=== PATIENT | female | born 1955 | race Caucasian/White ===

== ENCOUNTER 2022-09-26 09:02 | Day surgery (SDC) | payer MEDICARE, MEDICAID, SELFPAY ==
[2022-09-26 09:43] VITALS: BP 133/74; PULSE 92; RESP 20; TEMP 36.5; O2SAT 98
[2022-09-26] MEDS: Tropicam./Phenyleph. (1/2.5%) 5 ML BTL OD ×3 (10:04→10:14)
--- NOTE | 2022-09-26 10:20 | ANES.PREOP_ITS ---
General Info Date of Service Date Performed: 09/26/22 Height: 5 ft 1 in Weight: 53.8 kg Body Mass Index (BMI): 22.4 Surgical Procedure: Operation Date: 09/26/22 11:25 Proposed Procedure Side Surgeon p Cataract Extraction with IOL Implant Right Stan Sanchez MD Meds Allergies and Home Medications Allergies Allergy/AdvReac Type Severity Reaction Status Date / Time Iodinated Contrast Media Allergy Intermediate Nausea Verified 09/26/22 09:51 vomiting Home Medication Medication Instructions Recorded albuterol sulfate 90 mcg/actuation 2 puff inhalation Q6H PRN 02/20/22 aerosol inhaler (Ventolin HFA) fluticasone fur. 200 mcg-umeclid 1 inh inhalation DAILY 02/20/22 62.5 mcg-vilant 25 mcg inhalat.powder (Trelegy Ellipta) levothyroxine 50 mcg tablet 50 mcg PO DAILY 02/20/22 lorazepam 1 mg tablet 1 mg PO TID PRN 02/20/22 omeprazole 20 mg capsule,delayed 20 mg PO DAILY 02/20/22 release albuterol sulfate 2.5 mg/3 mL 2.5 mg inhalation DIRECTED 09/23/22 (0.083 %) solution for nebulization diltiazem HCl 120 mg capsule,24 120 mg PO DAILY 09/23/22 hr,extended release Current Visit Medications: Current Medications Generic Name Dose Route Start Last Admin Trade Name Freq PRN Reason Stop Dose Admin Acetaminophen 1,000 mg 09/26/22 06:00 Acetaminophen 500 Mg Tab PO 10/26/22 05:59 Q4H PRN PRN Balanced Salt Solution 500 ml 09/26/22 06:00 Balanced Salt Soln.-Plus 500 Ml Bag OP 10/26/22 05:59 DIRECTED FEDE Miscellaneous Medication 0 ml 09/26/22 06:00 Prednisolone 1%, Moxifloxacin 0.5%, Nepafenac 0.1% 5ml Btl OD 10/26/22 05:59 DIRECTED FEDE Miscellaneous Medication 0 ml 09/26/22 06:00 09/26/22 10:14 Tropicam./Phenyleph. (1/2.5%) 5 Ml Btl OD 10/26/22 05:59 1 drp DIRECTED FEDE Administration Tetracaine HCl 0 ml 09/26/22 06:00 Tetracaine 0.5% 4 Ml Btl OD 10/26/22 05:59 DIRECTED [facility] Active Problems Active Problems: Problem Status Onset Code Cortical age-related cataract, right eye H25.011 Nuclear sclerotic cataract of right eye H25.11 Posterior subcapsular age-related cataract, right eye H25.041 Medical History Medical History Advanced COPD CAD (coronary artery disease) Chest wall pain Former smoker Heart burn Hx of radiation therapy Last done 08/18/22 Hypertension Hypothyroid Lung cancer Mediastinal lymphadenopathy Metastatic lung cancer (metastasis from lung to other site) to hip bone Primary malignant neoplasm of right lower lobe of lung Tachycardia Medical History Comments:: Pt. requests O2 during procedure. Surgical History Surgical History History of colonoscopy History of hysterectomy Tobacco Smoking/Tobacco Use Status: Former Tobacco Use Alcohol Alcohol Intake: never Substance Use Substance use: Never Substance use type: does not use Vital Signs and Lab Results Vital Signs Most Recent Vital Signs in EMR: Most Recent Vital Signs Temp Pulse Resp BP Pulse Ox 36.5 C 92 H 20 133/74 98 09/26/22 09:43 09/26/22 09:43 09/26/22 09:43 09/26/22 09:43 09/26/22 09:43 Lab Results Blood Type / Crossmatch: No Data to Display Complete Blood Count: No Data to Display Complete Metabolic Panel: No Data to Display Liver Function Panel: No Data to Display Coagulation Panel: No Data to Display Cardiac Panel: No Data to Display Arterial Blood Gas: No Data to Display Venous Blood Gas: No Data to Display Pancreas Panel: No Data to Display Thyroid Panel: No Data to Display Infectious Disease: No Data to Display Blood Cultures: No Data to Display Toxicology Panel: No Data to Display Anesthesia Assessment and Plan Anesthesia History Personal History: No History of Anesthesia Complications Family History: No Family History of Anesthesia Complications Exercise Tolerance Exercise Tolerance: Metabolic Equivalents<4 Pertinent Negatives Pertinent Negatives: No Symptoms of GERD and No Major Cardiovascular Symptoms or Complaints Cardiac & Pulmonary Exam Cardiac Exam: Normal S1/S2 Heart Sounds Pulmonary Exam: Clear Bilateral Breath Sounds (diminished) Cardiac and Pulmonary Comment:: Severe ALCAZAR, home O2 Implantable Cardiac Device Does patient have a Pacemaker or an ICD?: No Airway Exam Known Difficult Airway: No Mallampati Class: 2 Mouth Opening: Normal (> 3cm) Thyromental Distance: Greater than 3 cm Neck Range of Motion: Full ROM Neck Circumference: Normal Teeth Condition: Generalized Poor Dentition (some slightly loose per pt) ASA Classification ASA Score: ASA 4 Emergency Case?: No NPO Status NPO Status: NPO Clears >2 hours, Solids >8 hours Anesthesia Plan Resuscitation Status: Full Code Anesthesia Technique: MAC Anesthesia Airway Planned: Natural Airway Monitors Used: Standard Monitors Preoperative Comments:: MKO planned Position in OR to decrease duration of lying flat
[2022-09-26 10:23] VITALS: BMI 22.4
[2022-09-26] MEDS: Tetracaine 0.5% 4 ML BTL OD (11:25)
[2022-09-26] MEDS: Povidone-Iodine Ophth 30 ML BTL ×2 (11:25→11:40)
[2022-09-26] MEDS: Lidocaine 1% Pres-Free 5 ML VIAL (11:26)
[2022-09-26] MEDS: Balanced Salt Soln.-PLUS 500 ML BAG OP (11:27)
[2022-09-26] MEDS: Duovisc Viscoelastic System EACH 1 EACH (11:28)
[2022-09-26] MEDS: Phenylephrine/Lidocaine (15/10) MG/ML 1 ML VIAL (11:28)
[2022-09-26 11:45] VITALS: BP 103/69; PULSE 102; RESP 20; TEMP 36.5; O2SAT 97
--- NOTE | 2022-09-26 11:46 | W.PM.DSUDISC ---
Date of service: 09/26/22 Time of Service: 11:46 Discharge Plan Disposition Patient Disposition: Home Discharge Details Attending Provider: Stan Sanchez Primary Care Provider: Morteza Rutherford Home Meds and New Rx's Prescriptions: No Action albuterol sulfate 2.5 mg /3 mL (0.083 %) Solution For Nebulization 2.5 mg inhalation DIRECTED diltiazem HCl 120 mg Capsule,Extended Release 24 Hr 120 mg PO DAILY levothyroxine 50 mcg Tablet 50 mcg PO DAILY omeprazole 20 mg Capsule,Delayed Release(Dr/Ec) 20 mg PO DAILY lorazepam 1 mg Tablet 1 mg PO TID PRN albuterol sulfate [Ventolin HFA] 90 mcg/actuation Hfa Aerosol Inhaler 2 puff INHALATION Q6H PRN Trelegy Ellipta 200-62.5-25 mcg Blister With Device 1 inh INHALATION DAILY Discharge Instructions Stand Alone Forms: Post-op Topical Cataract, Carroll Pacheco (DSU) Discharge Orders Discharge Orders: Discharge Order (Routine); Ordered 09/26/22 Ordered By: Stan Sanchez Discharge Data Discharge Date/Time-TO BE ENTERED AT DEPARTURE: 09/26/22 12:15 DS: Diagnosis Discharge Diagnosis (1) Cortical age-related cataract, right eye: Status: Resolved (2) Nuclear sclerotic cataract of right eye: Status: Resolved (3) Posterior subcapsular age-related cataract, right eye: Status: Resolved
--- NOTE | 2022-09-26 11:47 | W.PM.OP ---
Date of service: 09/26/22 Time of Service: 11:47 Operative Note Operative Note DATE OF PROCEDURE: 10/01/20 PRE-OP DIAGNOSIS: Nuclear/cortical/posterior subcapsular cataract, right eye POST-OP DIAGNOSIS: same PROCEDURE: Cataract extraction using phacoemulsification with intraocular lens implant, right eye SURGEON: Stan Sanchez ANESTHESIA TYPE: Local By Surgeon and MAC Refer to Anesthesia Record ESTIMATED BLOOD LOSS: 0 PATHOLOGY: none sent COMPLICATIONS: None Patient was transported to: same day Patient's condition: stable Implants: Tyson & Tyson Tecnis Eyhance [id number] Indications: Progressive visual loss due to cataract, right eye Procedure Description: CATARACT SURGERY OPERATIVE REPORT PREOPERATIVE DIAGNOSIS: 1. Nuclear/cortical/posterior subcapsular cataract, right eye POSTOPERATIVE DIAGNOSIS: Same OPERATION: 1. Cataract extraction using phacoemulsification with posterior chamber intraocular lens implant, right eye. IOL: IOL Seamless Tube Roller/Model: Tyson & Tyson Tecnis Eyhance [id number] IOL Power: + 13.5 diopters IOL Serial Number: [id number] Optic Diameter: 6.0mm Haptic/Overall Diameter: 13.0mm PHACO INFO: Teofilo Curried Away Cateringurion Vision System with OZil and Active Fluidics Cumulative Dispersed Energy (CDE): 14.87 seconds SURGEON: Stan aSnchez MD, KWAN ANESTHESIA: Monitored Anesthesia Care (MAC), with local sub-tenon's anesthetic infiltration COMPLICATIONS: None SPECIMENS: None INDICATIONS FOR PROCEDURE: The patient is a 66-year-old lady with history of diminished visual acuity in her right eye secondary to the development of nuclear/cortical/posterior subcapsular cataract. She is significantly symptomatic that she desires cataract surgery and attempt to improve and maximize her vision. The option of cataract surgery was offered to the patient and she wished to proceed. PROCEDURE: The correct surgical eye was identified and marked as the right eye and the pupil was dilated in the preoperative area using mydriatics and cycloplegics. The dilated pupil size was 6.0 mm. Oral sedation was administered in the form of an Imprimis MKO Melt (midazolam 3mg/ketamine 25mg/ondansetron 2mg). The patient was brought to the operating room where cardiopulmonary monitoring was instituted and surgical time-out was performed, confirming the correct operative eye and IOL power. Topical anesthesia was administered and ophthalmic povidone-iodine 5% was instilled into the conjunctival fornices. The jose-ocular area was prepped with Betadine 10% solution and draped in the usual sterile fashion for intraocular surgery, including an aperture drape. A Tegaderm transparent film dressing was cut in half and used to cover the lashes and lid margins. Care was taken to sequester the lashes and lid margins under the Tegaderm dressing. A lid speculum was placed between the lids of the operative eye and the Teofilo LuxOR Revalia operating microscope was maneuvered into position. Maria Eugenia scissors were then used to make a conjunctival buttonhole approximately 6mm posterior to the limbus in the inferonasal quadrant. Blunt dissection was carried out to expose bare sclera, and a blunt-tipped sub-tenon?s anesthesia cannula was introduced and passed posteriorly along the globe where non-preserved plain lidocaine was injected into posterior sub-Tenon?s space. A sideport knife was used to make a paracentesis port. Intraocular phenylephrine/lidocaine was injected into the anterior chamber. The anterior chamber was filled with viscoelastic. A keratome knife was used to construct a 2-plane clear corneal tunnel extending 2.0mm into clear cornea. A flap was raised on the anterior capsule and capsulorhexis forceps were used to complete a continuous curvilinear capsulorhexis of 5.0 mm. Balanced salt solution was then used to perform cortical cleaving hydrodissection and nuclear hydrodelineation until the lens could be freely rotated within the capsular bag. The lens nucleus was then disassembled and removed within the capsular bag and iris plane using phacoemulsification. Residual cortical material was removed using the I/A handpiece. The posterior capsule was carefully polished to remove as much residual lens epithelial cells as safely possible. The capsular bag was then inflated and the anterior chamber deepened with cohesive viscoelastic. The lens implant described above was inserted into the capsular bag using the Tyson and Bernard Simplicity pre-loaded injector. A Kuglen hook was used to dial the IOL into position. Residual viscoelastic was then removed first from posterior to the IOL, then from the anterior chamber using the I/A handpiece. The lens implant was noted to center nicely within the capsular bag. The incisions were stromally hydrated, and the anterior chamber was reformed using BSS. Then 0.5cc of moxifloxacin 1.0mg/ml were injected into the capsular bag and anterior chamber. The incisions were checked with a Weck spear and found to be secure. Several drops of ophthalmic povidone-iodine 5% were then applied to the eye followed by two drops of Imprimis combination prednisolone/moxifloxacin/nepafenac solution. The drapes were removed and a clear plastic protective eye shield was placed over the eye. The patient was then returned to Same Day Surgery in stable condition.
[2022-09-26 12:05] VITALS: BP 117/82; PULSE 91; RESP 20; TEMP 36.4; O2SAT 98
--- NOTE | 2022-09-26 12:48 | W.ANESPOSTOP ---
Postoperative Evaluation Date, Time and Location Date Performed: 09/26/22 Time Performed: 12:12 Patient Location: Day Surgery Unit Vital Signs Most Recent Imported Vital Signs: Most Recent Vital Signs Temp Pulse Resp BP Pulse Ox 36.4 C L 91 H 20 117/82 98 09/26/22 12:05 09/26/22 12:05 09/26/22 12:05 09/26/22 12:05 09/26/22 12:05 Pain Score Most Recent Pain Score: Most Recent Pain Score Pain Level 0 09/26/22 12:05 Assessment Mental Status: Awake (Alert & Oriented to Patient Baseline) Airway and Respiratory Function: Patent airway with normal (patient baseline) respiratory exam Cardiovascular Function: Hemodynamically Stable Hydration Status: Adequately Hydrated Nausea & Vomiting: No Nausea or Vomiting Pain: Pt. Denies Any Pain Peripheral Nerve Block: Patient did not receive a nerve block
== END 2022-09-26 12:15 | disposition home or self-care (01) ==
PROVIDERS: PCP Internal Medicine; Visit Provider Ophthalmology
PROC: (CPT 66984; principal; 2022-09-26 11:15)
DX: H25.011 Cortical age-related cataract, right eye (principal); H25.11 Age-related nuclear cataract, right eye; H25.041 Posterior subcapsular polar age-related cataract, right eye
CPT/HCPCS: 66984; V2632

== ENCOUNTER 2022-10-10 11:57 | Day surgery (SDC) | payer MEDICARE, MEDICAID, SELFPAY ==
[2022-10-10 12:45] VITALS: BP 123/89; PULSE 96; RESP 18; TEMP 36.3; O2SAT 91
[2022-10-10] MEDS: Tropicam./Phenyleph. (1/2.5%) 5 ML BTL OS ×3 (12:56→13:06)
--- NOTE | 2022-10-10 12:58 | W.ANESPRE ---
General Info Date of Service Date Performed: 10/10/22 Height: 5 ft 1 in Weight: 53.5 kg Body Mass Index (BMI): 22.2 Surgical Procedure: Operation Date: 10/10/22 14:25 Proposed Procedure Side Surgeon p Cataract Extraction with IOL Implant Left Stan Sanchez MD Meds Allergies and Home Medications Allergies Allergy/AdvReac Type Severity Reaction Status Date / Time Iodinated Contrast Media Allergy Intermediate Nausea Verified 10/10/22 12:40 vomiting Home Medication Medication Instructions Recorded albuterol sulfate 90 mcg/actuation 2 puff inhalation Q6H PRN 02/20/22 aerosol inhaler (Ventolin HFA) fluticasone fur. 200 mcg-umeclid 1 inh inhalation DAILY 02/20/22 62.5 mcg-vilant 25 mcg inhalat.powder (Trelegy Ellipta) levothyroxine 50 mcg tablet 50 mcg PO DAILY 02/20/22 lorazepam 1 mg tablet 1 mg PO TID PRN 02/20/22 omeprazole 20 mg capsule,delayed 20 mg PO DAILY 02/20/22 release albuterol sulfate 2.5 mg/3 mL 2.5 mg inhalation DIRECTED 09/23/22 (0.083 %) solution for nebulization diltiazem HCl 120 mg capsule,24 120 mg PO DAILY 09/23/22 hr,extended release lidocaine HCl 1 % lotion See Rx Instructions topical 09/30/22 DIRECTED pregabalin 25 mg capsule (Lyrica) 25 mg PO TID 09/30/22 tramadol 50 mg tablet 50 mg PO TID 09/30/22 triamcinolone acetonide 0.1 % 1 applic topical BID 09/30/22 topical cream Current Visit Medications: Current Medications Generic Name Dose Route Start Last Admin Trade Name Freq PRN Reason Stop Dose Admin Acetaminophen 1,000 mg 10/10/22 06:00 Acetaminophen 500 Mg Tab PO 11/09/22 05:59 Q4H PRN PRN Balanced Salt Solution 500 ml 10/10/22 06:00 Balanced Salt Soln.-Plus 500 Ml Bag OP 11/09/22 05:59 DIRECTED FEDE Miscellaneous Medication 0 ml 10/10/22 06:00 Prednisolone 1%, Moxifloxacin 0.5%, Nepafenac 0.1% 5ml Btl OS 11/09/22 05:59 DIRECTED FEDE Miscellaneous Medication 0 ml 10/10/22 06:00 10/10/22 12:56 Tropicam./Phenyleph. (1/2.5%) 5 Ml Btl OS 11/09/22 05:59 1 drp DIRECTED FEDE Administration Tetracaine HCl 0 ml 10/10/22 06:00 Tetracaine 0.5% 4 Ml Btl OS 11/09/22 05:59 DIRECTED [facility] PFSH Active Problems Active Problems: Problem Status Onset Code Nuclear sclerotic cataract of right eye H25.11 Posterior subcapsular age-related cataract, right eye H25.041 Cortical age-related cataract, right eye H25.011 Coronary arteriosclerosis in [place] artery I25.10 Nuclear age-related cataract, left eye H25.12 Cortical age-related cataract, left eye H25.012 Medical History Medical History Advanced COPD CAD (coronary artery disease) Chest wall pain Former smoker Heart burn Hx of radiation therapy Last done 08/18/22 Hypertension Hypothyroid Lung cancer Mediastinal lymphadenopathy Metastatic lung cancer (metastasis from lung to other site) to hip bone Primary malignant neoplasm of right lower lobe of lung Tachycardia Medical History Comments:: Pt. requests O2 during procedure. Surgical History Surgical History (Updated 10/10/22 @ 12:39 by Selvin Duval) History of colonoscopy History of hysterectomy Hx of appendectomy Tobacco Smoking/Tobacco Use Status: Former Tobacco Use Alcohol Alcohol Intake: never Substance Use Substance use: Never Substance use type: does not use Vital Signs and Lab Results Vital Signs Most Recent Vital Signs in EMR: Most Recent Vital Signs Temp Pulse Resp BP Pulse Ox 36.3 C L 96 H 18 123/89 91 L 10/10/22 12:45 10/10/22 12:45 10/10/22 12:45 10/10/22 12:45 10/10/22 12:45 Lab Results Blood Type / Crossmatch: No Data to Display Complete Blood Count: No Data to Display Complete Metabolic Panel: No Data to Display Liver Function Panel: No Data to Display Coagulation Panel: No Data to Display Cardiac Panel: No Data to Display Arterial Blood Gas: No Data to Display Venous Blood Gas: No Data to Display Pancreas Panel: No Data to Display Thyroid Panel: No Data to Display Infectious Disease: No Data to Display Blood Cultures: No Data to Display Toxicology Panel: No Data to Display Anesthesia Assessment and Plan Anesthesia History Personal History: No History of Anesthesia Complications Family History: Other Exercise Tolerance Exercise Tolerance: Metabolic Equivalents>4 Pertinent Negatives Pertinent Negatives: No Major Cardiovascular Symptoms or Complaints Cardiac & Pulmonary Exam Cardiac Exam: Normal S1/S2 Heart Sounds Pulmonary Exam: Clear Bilateral Breath Sounds Cardiac and Pulmonary Comment:: Diminished lungs Implantable Cardiac Device Does patient have a Pacemaker or an ICD?: No Airway Exam Known Difficult Airway: No Mallampati Class: 2 Mouth Opening: Normal (> 3cm) Thyromental Distance: Greater than 3 cm Neck Range of Motion: Full ROM Neck Circumference: Normal Teeth Condition: Generalized Poor Dentition (some slightly loose per pt) ASA Classification ASA Score: ASA 4 Emergency Case?: No NPO Status NPO Status: NPO Clears >2 hours, Solids >8 hours Anesthesia Plan Resuscitation Status: Full Code Anesthesia Technique: MAC Anesthesia Airway Planned: Natural Airway Monitors Used: Standard Monitors
[2022-10-10 13:02] VITALS: BMI 22.2
--- NOTE | 2022-10-10 13:05 | HPE_ITS ---
Assessment and Plan Assessment and plan (1) Nuclear age-related cataract, left eye: Status: Acute Assessment and plan: Assessment: Visually significant cataract of the left eye. Plan: Cataract extraction with lens implantation of the left eye (2) Cortical age-related cataract, left eye: Status: Acute Assessment and plan: Assessment: Visually significant cataract of the left eye. Plan: Cataract extraction with lens implantation of the left eye History of Present Illness History of Present Illness Chief Complaint: Progressive decreased vision, left eye Narrative: The patient is a 66-year-old lady with history of diminished visual acuity in both eyes secondary to the development of bilateral nuclear/cortical cataract. She has already undergone cataract surgery in the right eye on 09/26/2022 and is doing well postoperatively. She now presents for cataract surgery in her symptomatic left eye. She notes blurred vision at both distance and near secondary to cataracts. Is a significantly impacting her activities of daily life and she desires cataract surgery attempt to improve and maximize her vision. Review of Systems All systems reviewed & are unremarkable except as noted in HPI and below PFSH All Active Problems Coronary arteriosclerosis in [place] artery (Acute) Nuclear age-related cataract, left eye (Acute) Cortical age-related cataract, left eye (Acute) Medical History Advanced COPD CAD (coronary artery disease) Chest wall pain Former smoker Heart burn Hx of radiation therapy Last done 08/18/22 Hypertension Hypothyroid Lung cancer Mediastinal lymphadenopathy Metastatic lung cancer (metastasis from lung to other site) to hip bone Primary malignant neoplasm of right lower lobe of lung Tachycardia Surgical History History of colonoscopy History of hysterectomy Hx of appendectomy Family History Father COPD (chronic obstructive pulmonary disease) Mother Cancer Heart disease heart attack Uncle Heart disease heart attack Aunt Heart disease heart attack Social History Smoking/Tobacco Use Status: Former Tobacco Use tobacco type: cigarettes Quit Date: 03/16/13 Smoking risk assessment performed?: Yes Alcohol Intake: never Drug use: Never Substance use type: does not use Housing: apartment Do you feel safe at home: Yes Additional Social history: lives alone-pt. states her daughter will come and help her post-operatively Meds Allergies and Home Medications Allergies Allergy/AdvReac Type Severity Reaction Status Date / Time Iodinated Contrast Media Allergy Intermediate Nausea Verified 10/10/22 12:40 vomiting Home Medications Medication Instructions Recorded Confirmed Type albuterol sulfate 90 mcg/actuation 2 puff inhalation Q6H PRN 02/20/22 10/10/22 History aerosol inhaler (Ventolin HFA) fluticasone fur. 200 mcg-umeclid 1 inh inhalation DAILY 02/20/22 10/10/22 History 62.5 mcg-vilant 25 mcg inhalat.powder (Trelegy Ellipta) levothyroxine 50 mcg tablet 50 mcg PO DAILY 02/20/22 10/10/22 History lorazepam 1 mg tablet 1 mg PO TID PRN 02/20/22 10/10/22 History omeprazole 20 mg capsule,delayed 20 mg PO DAILY 02/20/22 10/10/22 History release albuterol sulfate 2.5 mg/3 mL 2.5 mg inhalation DIRECTED 09/23/22 10/08/22 History (0.083 %) solution for nebulization diltiazem HCl 120 mg capsule,24 120 mg PO DAILY 09/23/22 10/10/22 History hr,extended release lidocaine HCl 1 % lotion See Rx Instructions topical 09/30/22 10/08/22 History DIRECTED pregabalin 25 mg capsule (Lyrica) 25 mg PO TID 09/30/22 10/08/22 History tramadol 50 mg tablet 50 mg PO TID 09/30/22 10/08/22 History triamcinolone acetonide 0.1 % 1 applic topical BID 09/30/22 10/08/22 History topical cream Exam Eyes Other: Most recent ocular examination is significant for uncorrected vision of 20/20 in the right eye, corrected vision in the left eye is 20/200. Extract motility is normal. Intraocular pressures 13 OU. Slit-lamp examination is significant for pupils dilating to 5 mm OU. Well-positioned PCIOL OD with clear posterior capsule. The left eye shows moderate nuclear with mild posterior subcapsular cataract. Dilated funduscopic examination shows disc cupping of 0.35 OU with normal vessels, macula, peripheral retina and vitreous. Resp Auscultation: clear to auscultation bilaterally Cardio Rate: regular rate Rhythm: regular rhythm Results Last Vital Signs Temp 36.3 C L 10/10/22 12:45 Pulse 96 H 10/10/22 12:45 Resp 18 10/10/22 12:45 BP 123/89 10/10/22 12:45 Pulse Ox 91 L 10/10/22 12:45
[2022-10-10] MEDS: Tetracaine 0.5% 4 ML BTL OS (13:52)
[2022-10-10] MEDS: Povidone-Iodine Ophth 30 ML BTL (13:52)
[2022-10-10] MEDS: Phenylephrine/Lidocaine (15/10) MG/ML 1 ML VIAL (14:00)
[2022-10-10] MEDS: Lidocaine 1% Pres-Free 5 ML VIAL (14:00)
[2022-10-10] MEDS: Balanced Salt Soln.-PLUS 500 ML BAG OP (14:00)
[2022-10-10] MEDS: Duovisc Viscoelastic System EACH 1 EACH (14:01)
--- NOTE | 2022-10-10 14:23 | W.PM.DSUDISC ---
Date of service: 10/10/22 Time of Service: 14:23 Discharge Plan Disposition Patient Disposition: Home Discharge Details Attending Provider: Stan Sanchez Primary Care Provider: Morteza Rutherford Home Meds and New Rx's Prescriptions: No Action lidocaine HCl 1 % lotion See Rx Instructions topical DIRECTED Rx Instructions: topically as directed; pregabalin [Lyrica] 25 mg capsule 25 mg PO TID tramadol 50 mg tablet 50 mg PO TID triamcinolone acetonide 0.1 % cream 1 applic topical BID albuterol sulfate 2.5 mg /3 mL (0.083 %) Solution For Nebulization 2.5 mg inhalation DIRECTED diltiazem HCl 120 mg Capsule,Extended Release 24 Hr 120 mg PO DAILY levothyroxine 50 mcg Tablet 50 mcg PO DAILY omeprazole 20 mg Capsule,Delayed Release(Dr/Ec) 20 mg PO DAILY lorazepam 1 mg Tablet 1 mg PO TID PRN albuterol sulfate [Ventolin HFA] 90 mcg/actuation Hfa Aerosol Inhaler 2 puff INHALATION Q6H PRN Trelegy Ellipta 200-62.5-25 mcg Blister With Device 1 inh INHALATION DAILY Discharge Instructions Stand Alone Forms: Post-op Topical Cataract, Carroll Pacheco (DSU) Discharge Orders Discharge Orders: Discharge Order (Routine); Ordered 10/10/22 Ordered By: Stan Sanchez DS: Diagnosis Discharge Diagnosis (1) Nuclear age-related cataract, left eye: Status: Resolved (2) Cortical age-related cataract, left eye: Status: Resolved
[2022-10-10 14:24] VITALS: BP 110/77; PULSE 101; RESP 20; TEMP 36.4; O2SAT 95
--- NOTE | 2022-10-10 14:24 | W.PM.OP ---
Date of service: 10/10/22 Time of Service: 14:24 Operative Note Operative Note DATE OF PROCEDURE: 10/10/22 PRE-OP DIAGNOSIS: Nuclear/cortical cataract, left eye POST-OP DIAGNOSIS: same PROCEDURE: Cataract extraction using phacoemulsification with intraocular lens implant, left eye SURGEON: Stan Sanchez ANESTHESIA TYPE: Local By Surgeon and MAC Refer to Anesthesia Record PATHOLOGY: none sent COMPLICATIONS: None Patient was transported to: same day Patient's condition: stable Implants: Tyson and Tyson Tecnis Eyhance [id number] Indications: Progressive decreased vision due to cataract, left eye Procedure Description: CATARACT SURGERY OPERATIVE REPORT PREOPERATIVE DIAGNOSIS: 1. Nuclear/cortical cataract, left eye POSTOPERATIVE DIAGNOSIS: Same OPERATION: 1. Cataract extraction using phacoemulsification with posterior chamber intraocular lens implant, left eye. IOL: IOL Network Development Coordinator/Model: Tyson & Tyson Tecnis Eyhance DIB00 IOL Power: + 15.0 diopters IOL Serial Number: [id number] Optic Diameter: 6.0 mm Haptic/Overall Diameter: 13.0 mm PHACO INFO: [employer] Vision System with OZil and Active Fluidics Cumulative Dispersed Energy (CDE): 6.70 seconds SURGEON: Stan Sanchez MD, KWAN ANESTHESIA: Monitored A [facility] (MAC), with local sub-tenon's anesthetic infiltration COMPLICATIONS: None SPECIMENS: None INDICATIONS FOR PROCEDURE: The patient is a 67-year-old lady with history of diminished visual acuity in both eyes secondary to the development of bilateral nuclear/cortical cataract. She has already undergone cataract surgery in the right eye and is doing well postoperatively. She now presents for cataract surgery in the left eye. See office notes for detailed information. PROCEDURE: The correct surgical eye was identified and marked as the left eye and the pupil was dilated in the preoperative area using mydriatics and cycloplegics. The dilated pupil size was 7.0 mm. Oral sedation was administered in the form of an Imprimis MKO Melt (midazolam 3mg/ketamine 25mg/ondansetron 2mg). The patient was brought to the operating room where cardiopulmonary monitoring was instituted and surgical time-out was performed, confirming the correct operative eye and IOL power. Topical anesthesia was administered and ophthalmic povidone-iodine 5% was instilled into the conjunctival fornices. The jose-ocular area was prepped with Betadine 10% solution and draped in the usual sterile fashion for intraocular surgery, including an aperture drape. A Tegaderm transparent film dressing was cut in half and used to cover the lashes and lid margins. Care was taken to sequester the lashes and lid margins under the Tegaderm dressing. A lid speculum was placed between the lids of the operative eye and the Teofilo LuxOR Revalia operating microscope was maneuvered into position. Maria Eugenia scissors were then used to make a conjunctival buttonhole approximately 6mm posterior to the limbus in the inferonasal quadrant. Blunt dissection was carried out to expose bare sclera, and a blunt-tipped sub-tenon?s anesthesia cannula was introduced and passed posteriorly along the globe where non-preserved plain lidocaine was injected into posterior sub-Tenon?s space. A sideport knife was used to make a paracentesis port. Intraocular phenylephrine/lidocaine was injected into the anterior chamber.. The anterior chamber was filled with viscoelastic. A keratome knife was used to construct a 2-plane near-clear corneal tunnel extending 2.0mm into clear cornea. A flap was raised on the anterior capsule and capsulorhexis forceps were used to complete a continuous curvilinear capsulorhexis of 5.5 mm. Balanced salt solution was then used to perform cortical cleaving hydrodissection and nuclear hydrodelineation until the lens could be freely rotated within the capsular bag. The lens nucleus was then disassembled and removed within the capsular bag and iris plane using phacoemulsification. Residual cortical material was removed using the irrigation/aspiration handpiece. The posterior capsule was carefully polished to remove as much residual lens epithelial cells as safely possible. The capsular bag was then inflated and the anterior chamber deepened with viscoelastic. The lens implant described above was inserted into the capsular bag using the Tyson and Tyson Simplicity pre-loaded injector. A Kuglen hook was used to dial the IOL into position. Residual viscoelastic was then removed first from posterior to the IOL, then from the anterior chamber using the I/A handpiece. The lens implant was noted to center nicely within the capsular bag. The incisions were stromally hydrated, and the anterior chamber was reformed using BSS. Then 0.5cc of moxifloxacin 1.0mg/ml were injected into the capsular bag and anterior chamber. The incisions were checked with a Weck spear and found to be secure. Several drops of ophthalmic povidone-iodine 5% were then applied to the eye followed by two drops of Imprimis combination prednisolone/moxifloxacin/nepafenac solution. The drapes were removed and a clear plastic protective eye shield was placed over the eye. The patient was then returned to [facility] Day Surgery in stable condition.
--- NOTE | 2022-10-10 14:41 | W.ANESPOSTOP ---
Postoperative Evaluation Date, Time and Location Date Performed: 10/10/22 Time Performed: 14:26 Patient Location: Day Surgery Unit Vital Signs Most Recent Imported Vital Signs: Most Recent Vital Signs Temp Pulse Resp BP Pulse Ox 36.4 C L 101 H 20 110/77 95 10/10/22 14:24 10/10/22 14:24 10/10/22 14:24 10/10/22 14:24 10/10/22 14:24 Pain Score Most Recent Pain Score: Most Recent Pain Score Pain Level 0 10/10/22 14:24 Assessment Mental Status: Awake (Alert & Oriented to Patient Baseline) Airway and Respiratory Function: Patent airway with normal (patient baseline) respiratory exam Cardiovascular Function: Hemodynamically Stable Hydration Status: Adequately Hydrated Nausea & Vomiting: No Nausea or Vomiting Pain: Pt. Denies Any Pain Peripheral Nerve Block: Patient did not receive a nerve block
[2022-10-10 14:45] VITALS: BP 110/77; PULSE 100; RESP 18; TEMP 36.4; O2SAT 96
== END 2022-10-10 14:53 | disposition home or self-care (01) ==
LOC: SUR 11:58
PROVIDERS: PCP Internal Medicine; Visit Provider Ophthalmology
PROC: (CPT 66984; principal; 2022-10-10 14:15)
DX: H25.12 Age-related nuclear cataract, left eye (principal); H25.012 Cortical age-related cataract, left eye; I10 Essential (primary) hypertension
CPT/HCPCS: 66984; V2632

== ENCOUNTER 2023-01-05 03:25 | Outpatient (RCR) | payer MEDICARE, MEDICAID, SELFPAY ==
[2023-01-05] MEDS: Normal Saline Flush 10 ML SYR IVP (09:38)
[2023-01-05 10:10] LABS: Abs Immature Grans 0.05 10^3/uL (0.0-0.06); Absolute Basophil Count 0.04 10^3/uL (0.0-0.2); Absolute Eosinophil Count 0.04 10^3/uL (0.0-0.7); Absolute Lymphocyte Count 0.81 10^3/uL (1.2-3.4); Absolute Monocyte Count 0.66 10^3/uL (0.1-0.8); Absolute Neutrophil Count 3.65 10^3/uL (1.2-6.7); Basophils % 0.8; Eosinophils % 0.8; HCT 32.8 % (36.0-46.0); HGB 10.9 g/dL (11.2-15.7); Lymphocytes % 15.4; MCHC 33.2 % (32.0-36.0); MCV 99 fL (80-95); MPV 9.3 fL (8.0-11.0); Monocytes % 12.6; Neutrophils % 69.4; Platelet Count 284 10^3/uL (130-400); RDW 19.5 % (11.7-14.6); WBC 5.25 10^3/uL (4.4-10.8)
[2023-01-05 10:36] LABS: ALT 16 U/L (14-59); AST 19 U/L (15-37); Albumin 3.8 g/dL (3.4-5.0); Alkaline Phosphatase 102 U/L (46-116); Anion Gap 11.7 mmol/L (3-11); BUN 6 mg/dL (7-18); Bilirubin, Total 0.3 mg/dL (0.2-1.0); CO2 24.3 mmol/L (21.0-32.0); CREATININE 0.7 mg/dL (0.55-1.02); Calcium 9.6 mg/dL (8.5-10.1); Chloride 104 mmol/L (98-107); Estimated GFR 94.73 (mL/min/1.73m2); FREE T4 1.44 ng/dL (0.76-1.46); Glucose 102 mg/dL (74-106); Magnesium 1.7 mg/dL (1.8-2.4); Potassium 3.5 mmol/L (3.5-5.1); Sodium 140 mmol/L (136-145); TSH 1.24 uIU/mL (0.36-3.74); Total Protein 7.5 g/dL (6.4-8.2)
== END 2023-01-13 23:59 | disposition home or self-care (01) ==
LOC: INF 03:25
PROVIDERS: PCP Internal Medicine; Visit Provider Internal Medicine Medical Oncology
DX: C34.31 Malignant neoplasm of lower lobe, right bronchus or lung (principal); Z79.899 Other long term (current) drug therapy; Z45.2 Encounter for adjustment and management of vascular access device
CPT/HCPCS: 36591; 80053; 83735; 84439; 84443; 85025

== ENCOUNTER 2023-01-26 02:11 | Outpatient (RCR) | payer MEDICARE, MEDICAID, SELFPAY ==
[2023-01-26 08:22] LABS: Abs Immature Grans 0.02 10^3/uL (0.0-0.06); Absolute Basophil Count 0.02 10^3/uL (0.0-0.2); Absolute Eosinophil Count 0.02 10^3/uL (0.0-0.7); Absolute Lymphocyte Count 0.69 10^3/uL (1.2-3.4); Absolute Monocyte Count 0.76 10^3/uL (0.1-0.8); Absolute Neutrophil Count 2.49 10^3/uL (1.2-6.7); Basophils % 0.5; Eosinophils % 0.5; HGB 9.1 g/dL (11.2-15.7); Immature Grans % 0.5; Lymphocytes % 17.3; MCH 34.7 pg (27.0-33.0); MCHC 33.7 % (32.0-36.0); MCV 103 fL (80-95); MPV 9.6 fL (8.0-11.0); Neutrophils % 62.2; Platelet Count 196 10^3/uL (130-400); RBC 2.62 10^6/uL (3.93-5.22); RDW 19.7 % (11.7-14.6); RDW-SD 72.7 fL
[2023-01-26] MEDS: Normal Saline Flush 10 ML SYR IVP (08:30)
[2023-01-26 09:00] LABS: ALT 15 U/L (14-59); AST 18 U/L (15-37); Albumin 3.5 g/dL (3.4-5.0); Alkaline Phosphatase 87 U/L (46-116); Anion Gap 10.1 mmol/L (3-11); BUN 6 mg/dL (7-18); Bilirubin, Total 0.3 mg/dL (0.2-1.0); CO2 26.9 mmol/L (21.0-32.0); CREATININE 0.6 mg/dL (0.55-1.02); Calcium 8.7 mg/dL (8.5-10.1); Chloride 105 mmol/L (98-107); Estimated GFR 98.32 (mL/min/1.73m2); FREE T4 1.41 ng/dL (0.76-1.46); Glucose 96 mg/dL (74-106); Magnesium 1.2 mg/dL (1.8-2.4); Potassium 3.4 mmol/L (3.5-5.1); Sodium 142 mmol/L (136-145); TSH 2.01 uIU/mL (0.36-3.74)
== END 2023-02-12 23:59 | disposition home or self-care (01) ==
LOC: INF 02:11
PROVIDERS: PCP Internal Medicine; Visit Provider Internal Medicine Medical Oncology
DX: C34.31 Malignant neoplasm of lower lobe, right bronchus or lung (principal); Z79.899 Other long term (current) drug therapy; Z45.2 Encounter for adjustment and management of vascular access device
CPT/HCPCS: 36591; 80053; 83735; 84439; 84443; 85025

== ENCOUNTER 2023-03-11 01:06 | Outpatient (RCR) | payer MEDICARE, MEDICAID, SELFPAY ==
[2023-02-16] MEDS: Normal Saline Flush 10 ML SYR IVP (08:41)
[2023-02-16 09:08] LABS: Abs Immature Grans 0.03 10^3/uL (0.0-0.06); Absolute Basophil Count 0.02 10^3/uL (0.0-0.2); Absolute Eosinophil Count 0.02 10^3/uL (0.0-0.7); Absolute Lymphocyte Count 0.75 10^3/uL (1.2-3.4); Absolute Monocyte Count 0.83 10^3/uL (0.1-0.8); Absolute Neutrophil Count 3.38 10^3/uL (1.2-6.7); Basophils % 0.4; Eosinophils % 0.4; HCT 26.9 % (36.0-46.0); HGB 8.9 g/dL (11.2-15.7); Immature Grans % 0.6; Lymphocytes % 14.9; MCH 35.6 pg (27.0-33.0); MCHC 33.1 % (32.0-36.0); MCV 108 fL (80-95); MPV 9.8 fL (8.0-11.0); Monocytes % 16.5; Neutrophils % 67.2; Platelet Count 271 10^3/uL (130-400); RDW 19.3 % (11.7-14.6); RDW-SD 76.4 fL; WBC 5.03 10^3/uL (4.4-10.8)
[2023-02-16 09:36] LABS: ALT 18 U/L (14-59); AST 18 U/L (15-37); Albumin 3.8 g/dL (3.4-5.0); Alkaline Phosphatase 96 U/L (46-116); Anion Gap 13.3 mmol/L (3-11); BUN 5 mg/dL (7-18); Bilirubin, Total 0.4 mg/dL (0.2-1.0); CO2 23.7 mmol/L (21.0-32.0); CREATININE 0.8 mg/dL (0.55-1.02); Calcium 8.1 mg/dL (8.5-10.1); Chloride 103 mmol/L (98-107); Estimated GFR 80.71 (mL/min/1.73m2); FREE T4 1.45 ng/dL (0.76-1.46); Glucose 112 mg/dL (74-106); Magnesium 1.4 mg/dL (1.8-2.4); Potassium 3.5 mmol/L (3.5-5.1); Sodium 140 mmol/L (136-145); TSH 1.24 uIU/mL (0.36-3.74); Total Protein 7.3 g/dL (6.4-8.2)
[2023-03-11 09:09] LABS: Abs Immature Grans 0.03 10^3/uL (0.0-0.06); Absolute Basophil Count 0.03 10^3/uL (0.0-0.2); Absolute Eosinophil Count 0.02 10^3/uL (0.0-0.7); Absolute Lymphocyte Count 0.33 10^3/uL (1.2-3.4); Absolute Monocyte Count 0.91 10^3/uL (0.1-0.8); Absolute Neutrophil Count 5.42 10^3/uL (1.2-6.7); Basophils % 0.4; Eosinophils % 0.3; HCT 25.6 % (36.0-46.0); HGB 8.5 g/dL (11.2-15.7); Immature Grans % 0.4; Lymphocytes % 4.9; MCH 36.2 pg (27.0-33.0); MCHC 33.2 % (32.0-36.0); MPV 9.5 fL (8.0-11.0); Monocytes % 13.5; Neutrophils % 80.5; Platelet Count 244 10^3/uL (130-400); RBC 2.35 10^6/uL (3.93-5.22); RDW 17.8 % (11.7-14.6); RDW-SD 71.2 fL; WBC 6.74 10^3/uL (4.4-10.8)
[2023-03-11 09:12] LABS: MCV 109 fL (80-95)
[2023-03-11 09:41] LABS: ALT 14 U/L (14-59); AST 15 U/L (15-37); Albumin 3.4 g/dL (3.4-5.0); Alkaline Phosphatase 82 U/L (46-116); Anion Gap 11.9 mmol/L (3-11); BUN 9 mg/dL (7-18); Bilirubin, Total 0.3 mg/dL (0.2-1.0); CO2 25.1 mmol/L (21.0-32.0); CREATININE 0.8 mg/dL (0.55-1.02); Calcium 8.3 mg/dL (8.5-10.1); Chloride 104 mmol/L (98-107); Estimated GFR 80.71 (mL/min/1.73m2); FREE T4 1.56 ng/dL (0.76-1.46); Glucose 160 mg/dL (74-106); Magnesium 1.3 mg/dL (1.8-2.4); Potassium 3.2 mmol/L (3.5-5.1); Sodium 141 mmol/L (136-145); TSH 0.73 uIU/mL (0.36-3.74)
[2023-03-11] MEDS: Normal Saline Flush 10 ML SYR IVP (10:19)
== END 2023-03-15 23:59 | disposition home or self-care (01) ==
LOC: INF 01:06
PROVIDERS: PCP Internal Medicine; Visit Provider Internal Medicine Medical Oncology
DX: C34.31 Malignant neoplasm of lower lobe, right bronchus or lung (principal); C79.51 Secondary malignant neoplasm of bone; Z79.899 Other long term (current) drug therapy; Z45.2 Encounter for adjustment and management of vascular access device
CPT/HCPCS: 36591; 80053; 83735; 84439; 84443; 85025

== ENCOUNTER 2023-04-06 03:47 | Outpatient (RCR) | payer MEDICARE, MEDICAID, SELFPAY ==
[2023-03-17] MEDS: Normal Saline Flush 10 ML SYR IVP (08:34)
[2023-03-17 08:41] LABS: Abs Immature Grans 0.04 10^3/uL (0.0-0.06); Absolute Basophil Count 0.04 10^3/uL (0.0-0.2); Absolute Eosinophil Count 0.02 10^3/uL (0.0-0.7); Absolute Lymphocyte Count 0.48 10^3/uL (1.2-3.4); Absolute Monocyte Count 0.83 10^3/uL (0.1-0.8); Absolute Neutrophil Count 4.93 10^3/uL (1.2-6.7); Basophils % 0.6; Eosinophils % 0.3; HCT 34.2 % (36.0-46.0); HGB 11.1 g/dL (11.2-15.7); Immature Grans % 0.6; Lymphocytes % 7.6; MCH 33.3 pg (27.0-33.0); MCHC 32.5 % (32.0-36.0); MCV 103 fL (80-95); MPV 9.6 fL (8.0-11.0); Monocytes % 13.1; Neutrophils % 77.8; Platelet Count 205 10^3/uL (130-400); RBC 3.33 10^6/uL (3.93-5.22); RDW 18.3 % (11.7-14.6); WBC 6.34 10^3/uL (4.4-10.8)
[2023-03-17 09:08] LABS: ALT 15 U/L (14-59); AST 17 U/L (15-37); Albumin 3.5 g/dL (3.4-5.0); Alkaline Phosphatase 84 U/L (46-116); BUN 14 mg/dL (7-18); Bilirubin, Total 0.4 mg/dL (0.2-1.0); CREATININE 0.7 mg/dL (0.55-1.02); Calcium 8.8 mg/dL (8.5-10.1); Chloride 102 mmol/L (98-107); Estimated GFR 94.73 (mL/min/1.73m2); FREE T4 1.35 ng/dL (0.76-1.46); Glucose 105 mg/dL (74-106); Magnesium 1.1 mg/dL (1.8-2.4); Potassium 3.1 mmol/L (3.5-5.1); Sodium 140 mmol/L (136-145); TSH 1.51 uIU/mL (0.36-3.74); Total Protein 7.1 g/dL (6.4-8.2)
[2023-04-06] MEDS: Normal Saline Flush 10 ML SYR IVP (08:02)
[2023-04-06 08:08] LABS: Abs Immature Grans 0.02 10^3/uL (0.0-0.06); Absolute Basophil Count 0.02 10^3/uL (0.0-0.2); Absolute Eosinophil Count 0.07 10^3/uL (0.0-0.7); Absolute Monocyte Count 0.71 10^3/uL (0.1-0.8); Absolute Neutrophil Count 4.31 10^3/uL (1.2-6.7); Basophils % 0.3; Eosinophils % 1.2; HCT 32.6 % (36.0-46.0); HGB 10.7 g/dL (11.2-15.7); Immature Grans % 0.3; Lymphocytes % 10.5; MCH 34.3 pg (27.0-33.0); MCHC 32.8 % (32.0-36.0); MCV 105 fL (80-95); Monocytes % 12.4; Neutrophils % 75.3; Platelet Count 223 10^3/uL (130-400); RBC 3.12 10^6/uL (3.93-5.22); RDW 17.2 % (11.7-14.6); RDW-SD 66.9 fL; WBC 5.73 10^3/uL (4.4-10.8)
[2023-04-06 08:57] LABS: ALT 15 U/L (14-59); AST 21 U/L (15-37); Albumin 3.5 g/dL (3.4-5.0); Alkaline Phosphatase 69 U/L (46-116); Anion Gap 11.6 mmol/L (3-11); BUN 12 mg/dL (7-18); Bilirubin, Total 0.3 mg/dL (0.2-1.0); CO2 25.4 mmol/L (21.0-32.0); CREATININE 0.7 mg/dL (0.55-1.02); Calcium 8.7 mg/dL (8.5-10.1); Chloride 103 mmol/L (98-107); Estimated GFR 94.73 (mL/min/1.73m2); FREE T4 1.33 ng/dL (0.76-1.46); Glucose 106 mg/dL (74-106); Magnesium 1.3 mg/dL (1.8-2.4); Potassium 3.5 mmol/L (3.5-5.1); Sodium 140 mmol/L (136-145); TSH 2.42 uIU/mL (0.36-3.74); Total Protein 7.2 g/dL (6.4-8.2)
== END 2023-04-15 23:59 | disposition home or self-care (01) ==
LOC: INF 03:47
PROVIDERS: PCP Internal Medicine; Visit Provider Internal Medicine Medical Oncology
DX: C34.31 Malignant neoplasm of lower lobe, right bronchus or lung (principal); C79.51 Secondary malignant neoplasm of bone; Z79.899 Other long term (current) drug therapy; Z45.2 Encounter for adjustment and management of vascular access device
CPT/HCPCS: 36591; 80053; 83735; 84439; 84443; 85025

== ENCOUNTER 2023-05-11 03:48 | Outpatient (RCR) | payer MEDICARE, MEDICAID, SELFPAY ==
[2023-04-27] MEDS: Normal Saline Flush 10 ML SYR IVP (08:33)
[2023-04-27 08:39] LABS: Abs Immature Grans 0.03 10^3/uL (0.0-0.06); Absolute Basophil Count 0.02 10^3/uL (0.0-0.2); Absolute Eosinophil Count 0.02 10^3/uL (0.0-0.7); Absolute Lymphocyte Count 0.58 10^3/uL (1.2-3.4); Absolute Monocyte Count 0.78 10^3/uL (0.1-0.8); Basophils % 0.3; Eosinophils % 0.3; HCT 29.7 % (36.0-46.0); Immature Grans % 0.4; Lymphocytes % 8.4; MCH 35.2 pg (27.0-33.0); MCHC 33.7 % (32.0-36.0); MCV 105 fL (80-95); MPV 9.4 fL (8.0-11.0); Monocytes % 11.3; Neutrophils % 79.3; Platelet Count 282 10^3/uL (130-400); RBC 2.84 10^6/uL (3.93-5.22); RDW 17.5 % (11.7-14.6); RDW-SD 66.7 fL; WBC 6.93 10^3/uL (4.4-10.8)
[2023-04-27 09:03] LABS: ALT 14 U/L (14-59); AST 19 U/L (15-37); Albumin 3.4 g/dL (3.4-5.0); Alkaline Phosphatase 74 U/L (46-116); Anion Gap 13.2 mmol/L (3-11); BUN 12 mg/dL (7-18); Bilirubin, Total 0.3 mg/dL (0.2-1.0); CO2 25.8 mmol/L (21.0-32.0); CREATININE 0.7 mg/dL (0.55-1.02); Calcium 8.9 mg/dL (8.5-10.1); Chloride 104 mmol/L (98-107); Estimated GFR 94.73 (mL/min/1.73m2); Glucose 109 mg/dL (74-106); Magnesium 1.2 mg/dL (1.8-2.4); Sodium 143 mmol/L (136-145); TSH 2.43 uIU/mL (0.36-3.74); Total Protein 7.2 g/dL (6.4-8.2)
[2023-05-04] MEDS: Normal Saline Flush 10 ML SYR IVP (08:00)
[2023-05-04 08:32] LABS: Abs Immature Grans 0.02 10^3/uL (0.0-0.06); Absolute Basophil Count 0.03 10^3/uL (0.0-0.2); Absolute Eosinophil Count 0.04 10^3/uL (0.0-0.7); Absolute Lymphocyte Count 0.58 10^3/uL (1.2-3.4); Absolute Monocyte Count 0.61 10^3/uL (0.1-0.8); Absolute Neutrophil Count 4.61 10^3/uL (1.2-6.7); Basophils % 0.5; Eosinophils % 0.7; HCT 32.2 % (36.0-46.0); HGB 10.5 g/dL (11.2-15.7); Immature Grans % 0.3; Lymphocytes % 9.8; MCHC 32.6 % (32.0-36.0); MCV 104 fL (80-95); MPV 9.5 fL (8.0-11.0); Monocytes % 10.4; Neutrophils % 78.3; Platelet Count 228 10^3/uL (130-400); RBC 3.09 10^6/uL (3.93-5.22); RDW 17.7 % (11.7-14.6); RDW-SD 67.3 fL; WBC 5.89 10^3/uL (4.4-10.8)
[2023-05-04 09:00] LABS: ALT 13 U/L (14-59); AST 18 U/L (15-37); Albumin 3.6 g/dL (3.4-5.0); Alkaline Phosphatase 75 U/L (46-116); Anion Gap 13.3 mmol/L (3-11); BUN 9 mg/dL (7-18); Bilirubin, Total 0.4 mg/dL (0.2-1.0); CO2 23.7 mmol/L (21.0-32.0); CREATININE 0.7 mg/dL (0.55-1.02); Chloride 103 mmol/L (98-107); Estimated GFR 94.73 (mL/min/1.73m2); FREE T4 1.36 ng/dL (0.76-1.46); Glucose 101 mg/dL (74-106); Magnesium 1.5 mg/dL (1.8-2.4); Potassium 3.3 mmol/L (3.5-5.1); Sodium 140 mmol/L (136-145); TSH 2.77 uIU/mL (0.36-3.74); Total Protein 7.5 g/dL (6.4-8.2)
[2023-05-11] MEDS: Normal Saline Flush 10 ML SYR IVP (09:23)
[2023-05-11 09:47] LABS: Abs Immature Grans 0.02 10^3/uL (0.0-0.06); Absolute Basophil Count 0.03 10^3/uL (0.0-0.2); Absolute Eosinophil Count 0.06 10^3/uL (0.0-0.7); Absolute Lymphocyte Count 0.71 10^3/uL (1.2-3.4); Absolute Neutrophil Count 3.86 10^3/uL (1.2-6.7); Basophils % 0.6; Eosinophils % 1.1; HCT 32.1 % (36.0-46.0); HGB 10.8 g/dL (11.2-15.7); Immature Grans % 0.4; Lymphocytes % 13.4; MCH 35.3 pg (27.0-33.0); MCHC 33.6 % (32.0-36.0); MCV 105 fL (80-95); MPV 9.6 fL (8.0-11.0); Monocytes % 11.4; Neutrophils % 73.1; Platelet Count 242 10^3/uL (130-400); RBC 3.06 10^6/uL (3.93-5.22); RDW 16.8 % (11.7-14.6); RDW-SD 65.8 fL; WBC 5.28 10^3/uL (4.4-10.8)
[2023-05-11 10:09] LABS: ALT 14 U/L (14-59); AST 19 U/L (15-37); Albumin 3.6 g/dL (3.4-5.0); Alkaline Phosphatase 75 U/L (46-116); Anion Gap 11.5 mmol/L (3-11); BUN 9 mg/dL (7-18); Bilirubin, Total 0.4 mg/dL (0.2-1.0); CO2 25.5 mmol/L (21.0-32.0); CREATININE 0.7 mg/dL (0.55-1.02); Chloride 103 mmol/L (98-107); Estimated GFR 94.73 (mL/min/1.73m2); FREE T4 1.45 ng/dL (0.76-1.46); Glucose 91 mg/dL (74-106); Magnesium 1.4 mg/dL (1.8-2.4); Potassium 3.5 mmol/L (3.5-5.1); Sodium 140 mmol/L (136-145); TSH 1.87 uIU/mL (0.36-3.74); Total Protein 7.3 g/dL (6.4-8.2)
== END 2023-05-14 23:59 | disposition home or self-care (01) ==
LOC: INF 03:48
PROVIDERS: PCP Internal Medicine; Visit Provider Internal Medicine Medical Oncology
DX: C34.31 Malignant neoplasm of lower lobe, right bronchus or lung (principal); C79.51 Secondary malignant neoplasm of bone; Z79.899 Other long term (current) drug therapy; Z45.2 Encounter for adjustment and management of vascular access device
CPT/HCPCS: 36591; 80053; 83735; 84439; 84443; 85025

== ENCOUNTER 2023-06-01 05:12 | Outpatient (RCR) | payer MEDICARE, MEDICAID, SELFPAY ==
[2023-06-01 09:18] LABS: Abs Immature Grans 0.02 10^3/uL (0.0-0.06); Absolute Basophil Count 0.04 10^3/uL (0.0-0.2); Absolute Eosinophil Count 0.07 10^3/uL (0.0-0.7); Absolute Lymphocyte Count 0.63 10^3/uL (1.2-3.4); Absolute Neutrophil Count 4.93 10^3/uL (1.2-6.7); Basophils % 0.6; Eosinophils % 1.1; HCT 31.9 % (36.0-46.0); HGB 10.4 g/dL (11.2-15.7); Immature Grans % 0.3; Lymphocytes % 9.7; MCH 35.3 pg (27.0-33.0); MCHC 32.6 % (32.0-36.0); MCV 108 fL (80-95); MPV 9.1 fL (8.0-11.0); Monocytes % 12.3; Platelet Count 275 10^3/uL (130-400); RBC 2.95 10^6/uL (3.93-5.22); RDW 15.6 % (11.7-14.6); RDW-SD 61.9 fL; WBC 6.49 10^3/uL (4.4-10.8)
[2023-06-01 09:35] LABS: ALT 13 U/L (14-59); AST 16 U/L (15-37); Albumin 3.4 g/dL (3.4-5.0); Alkaline Phosphatase 71 U/L (46-116); Anion Gap 9.3 mmol/L (3-11); BUN 11 mg/dL (7-18); Bilirubin, Total 0.3 mg/dL (0.2-1.0); CO2 26.7 mmol/L (21.0-32.0); CREATININE 0.8 mg/dL (0.55-1.02); Calcium 8.9 mg/dL (8.5-10.1); Chloride 105 mmol/L (98-107); Estimated GFR 80.71 (mL/min/1.73m2); Glucose 95 mg/dL (74-106); Magnesium 1.2 mg/dL (1.8-2.4); Potassium 3.6 mmol/L (3.5-5.1); Sodium 141 mmol/L (136-145); Total Protein 7.1 g/dL (6.4-8.2)
[2023-06-01] MEDS: Normal Saline Flush 10 ML SYR IVP (09:43)
== END 2023-06-14 23:59 | disposition home or self-care (01) ==
LOC: INF 05:12
PROVIDERS: PCP Internal Medicine; Visit Provider Internal Medicine Medical Oncology
DX: C34.31 Malignant neoplasm of lower lobe, right bronchus or lung (principal); C79.51 Secondary malignant neoplasm of bone; Z79.899 Other long term (current) drug therapy
CPT/HCPCS: 36591; 80053; 83735; 85025

== ENCOUNTER 2023-07-13 05:29 | Outpatient (RCR) | payer MEDICARE, MEDICAID, SELFPAY ==
[2023-06-24 08:32] LABS: Abs Immature Grans 0.03 10^3/uL (0.0-0.06); Absolute Basophil Count 0.05 10^3/uL (0.0-0.2); Absolute Eosinophil Count 0.18 10^3/uL (0.0-0.7); Absolute Lymphocyte Count 0.72 10^3/uL (1.2-3.4); Absolute Neutrophil Count 3.53 10^3/uL (1.2-6.7); Eosinophils % 3.5; HCT 30.9 % (36.0-46.0); Immature Grans % 0.6; Lymphocytes % 13.8; MCH 35.2 pg (27.0-33.0); MCHC 32.4 % (32.0-36.0); MCV 109 fL (80-95); Monocytes % 13.4; Neutrophils % 67.7; Platelet Count 287 10^3/uL (130-400); RBC 2.84 10^6/uL (3.93-5.22); RDW 15.9 % (11.7-14.6); RDW-SD 63.7 fL; WBC 5.21 10^3/uL (4.4-10.8)
[2023-06-24 08:56] LABS: ALT 15 U/L (14-59); AST 41 U/L (15-37); Albumin 2.9 g/dL (3.4-5.0); Alkaline Phosphatase 80 U/L (46-116); BUN 13 mg/dL (7-18); Bilirubin, Total 0.2 mg/dL (0.2-1.0); CREATININE 0.6 mg/dL (0.55-1.02); Calcium 7.7 mg/dL (8.5-10.1); Chloride 107 mmol/L (98-107); Estimated GFR 98.32 (mL/min/1.73m2); FREE T4 1.26 ng/dL (0.76-1.46); Glucose 82 mg/dL (74-106); Magnesium 1.4 mg/dL (1.8-2.4); Potassium 3.8 mmol/L (3.5-5.1); Sodium 143 mmol/L (136-145); TSH 3.38 uIU/Ml (0.36-3.74); Total Protein 6.6 g/dL (6.4-8.2)
[2023-06-24] MEDS: Normal Saline Flush 10 ML SYR IVP (09:09)
[2023-07-13] MEDS: Normal Saline Flush 10 ML SYR IVP (07:58)
[2023-07-13 08:04] LABS: Abs Immature Grans 0.02 10^3/uL (0.0-0.06); Absolute Basophil Count 0.04 10^3/uL (0.0-0.2); Absolute Eosinophil Count 0.13 10^3/uL (0.0-0.7); Absolute Lymphocyte Count 0.43 10^3/uL (1.2-3.4); Absolute Monocyte Count 0.97 10^3/uL (0.1-0.8); Absolute Neutrophil Count 5.54 10^3/uL (1.2-6.7); Basophils % 0.6; Eosinophils % 1.8; HCT 30.6 % (36.0-46.0); HGB 10.2 g/dL (11.2-15.7); Immature Grans % 0.3; MCH 35.7 pg (27.0-33.0); MCHC 33.3 % (32.0-36.0); MCV 107 fL (80-95); MPV 8.9 fL (8.0-11.0); Monocytes % 13.6; Neutrophils % 77.7; Platelet Count 346 10^3/uL (130-400); RBC 2.86 10^6/uL (3.93-5.22); RDW 16.4 % (11.7-14.6); RDW-SD 64.3 fL; WBC 7.13 10^3/uL (4.4-10.8)
[2023-07-13 08:29] LABS: ALT 19 U/L (14-59); AST 16 U/L (15-37); Albumin 3.3 g/dL (3.4-5.0); Alkaline Phosphatase 82 U/L (46-116); Anion Gap 10.7 mmol/L (3-11); BUN 9 mg/dL (7-18); Bilirubin, Total 0.3 mg/dL (0.2-1.0); CO2 27.3 mmol/L (21.0-32.0); CREATININE 0.7 mg/dL (0.55-1.02); Calcium 8.7 mg/dL (8.5-10.1); Chloride 104 mmol/L (98-107); Estimated GFR 94.73 (mL/min/1.73m2); FREE T4 1.49 ng/dL (0.76-1.46); Glucose 116 mg/dL (74-106); Magnesium 1.4 mg/dL (1.8-2.4); Potassium 3.2 mmol/L (3.5-5.1); Sodium 142 mmol/L (136-145); Total Protein 7.3 g/dL (6.4-8.2)
[2023-07-13 08:37] LABS: Diff Comment RBC Morph Reviewed
[2023-07-13 08:38] LABS: Macrocytosis 2+
== END 2023-07-14 23:59 | disposition home or self-care (01) ==
LOC: INF 05:29
PROVIDERS: PCP Internal Medicine; Visit Provider Internal Medicine Medical Oncology
DX: C34.31 Malignant neoplasm of lower lobe, right bronchus or lung (principal); Z79.899 Other long term (current) drug therapy; C79.51 Secondary malignant neoplasm of bone; Z45.2 Encounter for adjustment and management of vascular access device
CPT/HCPCS: 36591; 80053; 83735; 84439; 84443; 85025

== ENCOUNTER 2023-08-03 05:20 | Outpatient (RCR) | payer MEDICARE, SELFPAY ==
[2023-08-03] MEDS: Normal Saline Flush 10 ML SYR IVP (07:55)
[2023-08-03 08:00] LABS: Abs Immature Grans 0.02 10^3/uL (0.0-0.06); Absolute Basophil Count 0.05 10^3/uL (0.0-0.2); Absolute Eosinophil Count 0.08 10^3/uL (0.0-0.7); Absolute Monocyte Count 0.77 10^3/uL (0.1-0.8); Absolute Neutrophil Count 5.51 10^3/uL (1.2-6.7); Basophils % 0.7 %; Eosinophils % 1.2 %; HCT 30.5 % (36.0-46.0); Immature Grans % 0.3 %; Lymphocytes % 7.2 %; MCHC 32.8 % (32.0-36.0); MCV 110 fL (80-95); MPV 8.8 fL (8.0-11.0); Monocytes % 11.1 %; Neutrophils % 79.5 %; Platelet Count 309 10^3/uL (130-400); RBC 2.78 10^6/uL (3.93-5.22); RDW 16.7 % (11.7-14.6); RDW-SD 67.7 fL; WBC 6.93 10^3/uL (4.4-10.8)
[2023-08-03 08:28] LABS: ALT 21 U/L (14-59); AST 22 U/L (15-37); Albumin 3.2 g/dL (3.4-5.0); Alkaline Phosphatase 79 U/L (46-116); Anion Gap 9.2 mmol/L (3-11); BUN 16 mg/dL (7-18); Bilirubin, Total 0.2 mg/dL (0.2-1.0); CO2 26.8 mmol/L (21.0-32.0); CREATININE 0.8 mg/dL (0.55-1.02); Calcium 8.8 mg/dL (8.5-10.1); Chloride 104 mmol/L (98-107); Estimated GFR 80.71 (mL/min/1.73m2); FREE T4 1.16 ng/dL (0.76-1.46); Glucose 109 mg/dL (74-106); Magnesium 1.6 mg/dL (1.8-2.4); Potassium 3.6 mmol/L (3.5-5.1); Sodium 140 mmol/L (136-145); Total Protein 7.3 g/dL (6.4-8.2)
== END 2023-08-14 23:59 | disposition home or self-care (01) ==
LOC: INF 05:20
PROVIDERS: PCP Internal Medicine; Visit Provider Internal Medicine Medical Oncology
DX: Z79.899 Other long term (current) drug therapy (principal); C34.31 Malignant neoplasm of lower lobe, right bronchus or lung; Z45.2 Encounter for adjustment and management of vascular access device
CPT/HCPCS: 36591; 80053; 83735; 84439; 84443; 85025

== ENCOUNTER 2023-08-24 05:49 | Outpatient (RCR) | payer MEDICARE, SELFPAY ==
[2023-08-24] MEDS: Normal Saline Flush 10 ML SYR IVP (07:54)
[2023-08-24 07:59] LABS: Abs Immature Grans 0.04 10^3/uL (0.0-0.06); Absolute Basophil Count 0.05 10^3/uL (0.0-0.2); Absolute Eosinophil Count 0.08 10^3/uL (0.0-0.7); Absolute Lymphocyte Count 0.49 10^3/uL (1.2-3.4); Absolute Monocyte Count 0.89 10^3/uL (0.1-0.8); Absolute Neutrophil Count 7.04 10^3/uL (1.2-6.7); Basophils % 0.6 %; Eosinophils % 0.9 %; HCT 31.3 % (36.0-46.0); Immature Grans % 0.5 %; Lymphocytes % 5.7 %; MCH 35.2 pg (27.0-33.0); MCHC 31.9 % (32.0-36.0); MCV 110 fL (80-95); MPV 8.6 fL (8.0-11.0); Monocytes % 10.4 %; Neutrophils % 81.9 %; Platelet Count 287 10^3/uL (130-400); RBC 2.84 10^6/uL (3.93-5.22); RDW 15.9 % (11.7-14.6); RDW-SD 64.9 fL; WBC 8.59 10^3/uL (4.4-10.8)
[2023-08-24 08:24] LABS: ALT 19 U/L (14-59); AST 18 U/L (15-37); Albumin 3.2 g/dL (3.4-5.0); Alkaline Phosphatase 79 U/L (46-116); Anion Gap 8.4 mmol/L (3-11); BUN 16 mg/dL (7-18); Bilirubin, Total 0.3 mg/dL (0.2-1.0); CO2 27.6 mmol/L (21.0-32.0); CREATININE 0.8 mg/dL (0.55-1.02); Calcium 8.3 mg/dL (8.5-10.1); Chloride 104 mmol/L (98-107); Estimated GFR 80.71 (mL/min/1.73m2); FREE T4 1.32 ng/dL (0.76-1.46); Glucose 118 mg/dL (74-106); Magnesium 1.5 mg/dL (1.8-2.4); Potassium 3.5 mmol/L (3.5-5.1); Sodium 140 mmol/L (136-145); TSH 3.82 uIU/Ml (0.36-3.74); Total Protein 7.1 g/dL (6.4-8.2)
== END 2023-09-13 23:59 | disposition home or self-care (01) ==
LOC: INF 05:49
PROVIDERS: PCP Internal Medicine; Visit Provider Internal Medicine Medical Oncology
DX: C34.31 Malignant neoplasm of lower lobe, right bronchus or lung (principal); C79.51 Secondary malignant neoplasm of bone; Z79.899 Other long term (current) drug therapy; Z45.2 Encounter for adjustment and management of vascular access device
CPT/HCPCS: 36591; 80053; 83735; 84439; 84443; 85025

== ENCOUNTER 2023-10-07 01:39 | Outpatient (RCR) | payer MEDICARE, SELFPAY ==
[2023-09-14] MEDS: Normal Saline Flush 10 ML SYR IVP (08:03)
[2023-09-14 08:31] LABS: Abs Immature Grans 0.03 10^3/uL (0.0-0.06); Absolute Basophil Count 0.05 10^3/uL (0.0-0.2); Absolute Eosinophil Count 0.05 10^3/uL (0.0-0.7); Absolute Lymphocyte Count 0.38 10^3/uL (1.2-3.4); Basophils % 0.6 %; Eosinophils % 0.6 %; HCT 33.9 % (36.0-46.0); HGB 10.8 g/dL (11.2-15.7); Immature Grans % 0.3 %; Lymphocytes % 4.3 %; MCH 33.9 pg (27.0-33.0); MCHC 31.9 % (32.0-36.0); MCV 106 fL (80-95); MPV 9.5 fL (8.0-11.0); Neutrophils % 85.2 %; Platelet Count 247 10^3/uL (130-400); RBC 3.19 10^6/uL (3.93-5.22); RDW 13.5 % (11.7-14.6); RDW-SD 53.8 fL; WBC 8.91 10^3/uL (4.4-10.8)
[2023-09-14 08:57] LABS: ALT 15 U/L (14-59); AST 20 U/L (15-37); Albumin 3.4 g/dL (3.4-5.0); Alkaline Phosphatase 74 U/L (46-116); Anion Gap 10.2 mmol/L (3-11); BUN 15 mg/dL (7-18); Bilirubin, Total 0.36 mg/dL (0.2-1.0); CO2 26.8 mmol/L (21.0-32.0); CREATININE 0.7 mg/dL (0.55-1.02); Calcium 9.2 mg/dL (8.5-10.1); Chloride 103 mmol/L (98-107); Estimated GFR 94.73 (mL/min/1.73m2); FREE T4 1.61 ng/dL (0.76-1.46); Glucose 97 mg/dL (74-106); Magnesium 1.5 mg/dL (1.8-2.4); Potassium 3.5 mmol/L (3.5-5.1); Sodium 140 mmol/L (136-145); TSH 3.32 uIU/Ml (0.36-3.74); Total Protein 7.4 g/dL (6.4-8.2)
[2023-10-07] MEDS: Normal Saline Flush 10 ML SYR IVP (07:20)
[2023-10-07 07:29] LABS: Abs Immature Grans 0.04 10^3/uL (0.0-0.06); Absolute Basophil Count 0.05 10^3/uL (0.0-0.2); Absolute Eosinophil Count 0.25 10^3/uL (0.0-0.7); Absolute Lymphocyte Count 0.69 10^3/uL (1.2-3.4); Absolute Monocyte Count 0.59 10^3/uL (0.1-0.8); Absolute Neutrophil Count 5.29 10^3/uL (1.2-6.7); Basophils % 0.7 %; Eosinophils % 3.6 %; HCT 34.5 % (36.0-46.0); HGB 10.9 g/dL (11.2-15.7); Immature Grans % 0.6 %; MCH 32.9 pg (27.0-33.0); MCHC 31.6 % (32.0-36.0); MCV 104 fL (80-95); MPV 9.5 fL (8.0-11.0); Monocytes % 8.5 %; Neutrophils % 76.6 %; Platelet Count 203 10^3/uL (130-400); RBC 3.31 10^6/uL (3.93-5.22); RDW 13.9 % (11.7-14.6); RDW-SD 53.5 fL; WBC 6.91 10^3/uL (4.4-10.8)
[2023-10-07 07:54] LABS: ALT 17 U/L (14-59); AST 21 U/L (15-37); Albumin 3.4 g/dL (3.4-5.0); Alkaline Phosphatase 77 U/L (46-116); Anion Gap 9.5 mmol/L (3-11); BUN 19 mg/dL (7-18); Bilirubin, Total 0.27 mg/dL (0.2-1.0); CO2 26.5 mmol/L (21.0-32.0); CREATININE 0.8 mg/dL (0.55-1.02); Chloride 105 mmol/L (98-107); Estimated GFR 80.71 (mL/min/1.73m2); FREE T4 1.09 ng/dL (0.76-1.46); Glucose 88 mg/dL (74-106); Magnesium 1.5 mg/dL (1.8-2.4); Potassium 4.1 mmol/L (3.5-5.1); Sodium 141 mmol/L (136-145); TSH 12.35 uIU/Ml (0.36-3.74); Total Protein 7.5 g/dL (6.4-8.2)
== END 2023-10-14 23:59 | disposition home or self-care (01) ==
LOC: INF 01:39
PROVIDERS: PCP Internal Medicine; Visit Provider Internal Medicine Medical Oncology
DX: C34.31 Malignant neoplasm of lower lobe, right bronchus or lung (principal); Z79.899 Other long term (current) drug therapy; C79.51 Secondary malignant neoplasm of bone; Z45.2 Encounter for adjustment and management of vascular access device
CPT/HCPCS: 36591; 80053; 83735; 84439; 84443; 85025

== ENCOUNTER 2023-10-26 03:11 | Outpatient (RCR) | payer MEDICARE, SELFPAY ==
[2023-10-26] MEDS: Normal Saline Flush 10 ML SYR IVP (07:37)
[2023-10-26 08:14] LABS: Abs Immature Grans 0.02 10^3/uL (0.0-0.06); Absolute Basophil Count 0.04 10^3/uL (0.0-0.2); Absolute Eosinophil Count 0.27 10^3/uL (0.0-0.7); Absolute Lymphocyte Count 0.82 10^3/uL (1.2-3.4); Absolute Neutrophil Count 5.13 10^3/uL (1.2-6.7); Basophils % 0.6 %; Eosinophils % 3.8 %; HCT 35.9 % (36.0-46.0); HGB 11.4 g/dL (11.2-15.7); Immature Grans % 0.3 %; Lymphocytes % 11.6 %; MCHC 31.8 % (32.0-36.0); MCV 101 fL (80-95); MPV 9.6 fL (8.0-11.0); Monocytes % 11.3 %; Neutrophils % 72.4 %; Platelet Count 194 10^3/uL (130-400); RBC 3.56 10^6/uL (3.93-5.22); RDW 13.2 % (11.7-14.6); RDW-SD 49.6 fL; WBC 7.08 10^3/uL (4.4-10.8)
[2023-10-26 08:43] LABS: ALT 12 U/L (14-59); AST 16 U/L (15-37); Albumin 3.5 g/dL (3.4-5.0); Alkaline Phosphatase 80 U/L (46-116); BUN 18 mg/dL (7-18); Bilirubin, Total 0.31 mg/dL (0.2-1.0); CREATININE 0.7 mg/dL (0.55-1.02); Calcium 9.2 mg/dL (8.5-10.1); Chloride 104 mmol/L (98-107); Estimated GFR 94.15 (mL/min/1.73m2); FREE T4 1.11 ng/dL (0.76-1.46); Glucose 86 mg/dL (74-106); Magnesium 1.6 mg/dL (1.8-2.4); Potassium 3.8 mmol/L (3.5-5.1); Sodium 140 mmol/L (136-145); Total Protein 7.5 g/dL (6.4-8.2)
== END 2023-11-14 23:59 | disposition home or self-care (01) ==
LOC: INF 03:11
PROVIDERS: PCP Internal Medicine; Visit Provider Internal Medicine Medical Oncology
DX: C34.31 Malignant neoplasm of lower lobe, right bronchus or lung (principal); Z79.899 Other long term (current) drug therapy; C79.51 Secondary malignant neoplasm of bone; Z45.2 Encounter for adjustment and management of vascular access device
CPT/HCPCS: 36591; 80053; 83735; 84439; 84443; 85025

== ENCOUNTER → 2023-11-26 08:56 | Outpatient (BNVA) | payer MEDICARE, SELFPAY | PROVIDERS: PCP Internal Medicine; Referring Provider Internal Medicine; Visit Provider Internal Medicine | DX: J44.9 Chronic obstructive pulmonary disease, unspecified (principal); C34.90 Malignant neoplasm of unspecified part of unspecified bronchus or lung; Z87.891 Personal history of nicotine dependence; E03.9 Hypothyroidism, unspecified; Z92.3 Personal history of irradiation; E43 Unspecified severe protein-calorie malnutrition; R59.0 Localized enlarged lymph nodes; I10 Essential (primary) hypertension | CPT/HCPCS: 94618; 99205 ==

== ENCOUNTER 2024-06-13 01:06 | Outpatient (CLI) | payer MEDICARE, SELFPAY ==
--- NOTE | 2024-06-13 | DI.RAD_ITS ---
Exam(s) XR TIB/FIB LT EXAM: XR TIB/FIB LT CLINICAL HISTORY: Secondary malignant neoplasm of bone, C79.51, proximal tibial bone. TECHNIQUE: 2D digital imaging was performed of the left tibia and fibula. Two images were obtained. AP and lateral views were obtained. COMPARISON: CT CT CHEST WO CONTRAST from 11/29/2021 CR XR TIB/FIB 2V LT from 04/14/2024 FINDINGS: BONES: No acute fracture is present. There is again seen a lytic lesion involving the proximal diaphy sis of the tibia. There has been slight interval increase in size compared to the prior examination. Using similar measuring techniques, the lesion now measures 7.9 cm long compared to 7.3 cm on the p rior examination. There is been increase in the destructive changes involving the cortex particularl y laterally. Increased periosteal reaction is also noted. No other lytic lesions are identified. V isualized portion of knee and ankle joints are unremarkable. SOFT TISSUE: Normal. IMPRESSION: Slight interval increase in size and destructive changes in the proximal tibial lesion since 5. DATA REPOSITORY: RADIATION DOSE DELIVERED:
== END 2024-06-13 01:26 ==
LOC: DI 01:06
PROVIDERS: PCP Student in an Organized Health Care Education/Training Program; Visit Provider Nurse Practitioner
DX: C79.51 Secondary malignant neoplasm of bone (principal)
CPT/HCPCS: 36591; 80053; 73590; 83735; 84439; 84443; 85025

== ENCOUNTER 2024-06-13 01:31 | Outpatient (RCR) | payer MEDICARE, SELFPAY ==
[2024-05-24] MEDS: Normal Saline Flush 10 ML SYR IVP (08:35)
[2024-05-24 08:45] LABS: Abs Immature Grans 0.02 10^3/uL (0.0-0.06); Absolute Basophil Count 0.03 10^3/uL (0.0-0.2); Absolute Eosinophil Count 0.14 10^3/uL (0.0-0.7); Absolute Lymphocyte Count 0.48 10^3/uL (1.2-3.4); Absolute Monocyte Count 0.63 10^3/uL (0.1-0.8); Absolute Neutrophil Count 6.48 10^3/uL (1.2-6.7); Basophils % 0.4 %; Eosinophils % 1.8 %; HCT 37.5 % (36.0-46.0); Immature Grans % 0.3 %; Lymphocytes % 6.2 %; MCH 31.6 pg (27.0-33.0); MCV 99 fL (80-95); MPV 9.7 fL (8.0-11.0); Monocytes % 8.1 %; Neutrophils % 83.2 %; Platelet Count 248 10^3/uL (130-400); RDW 16.1 % (11.7-14.6); RDW-SD 58.1 fL; WBC 7.78 10^3/uL (4.4-10.8)
[2024-05-24 09:26] LABS: ALT 12 U/L (14-59); AST 13 U/L (15-37); Albumin 3.6 g/dL (3.4-5.0); Alkaline Phosphatase 78 U/L (46-116); Anion Gap 9.1 mmol/L (3-11); BUN 13 mg/dL (7-18); Bilirubin, Total 0.2 mg/dL (0.2-1.0); CO2 27.9 mmol/L (21.0-32.0); CREATININE 0.7 mg/dL (0.55-1.02); Calcium 9.3 mg/dL (8.5-10.1); Chloride 106 mmol/L (98-107); Estimated GFR 94.15 (mL/min/1.73m2); Glucose 119 mg/dL (74-106); Magnesium 1.7 mg/dL (1.8-2.4); Potassium 3.9 mmol/L (3.5-5.1); Sodium 143 mmol/L (136-145); TSH 6.25 uIU/mL (0.36-3.74); Total Protein 7.5 g/dL (6.4-8.2)
[2024-05-24 18:30] LABS: T4, Free 1.1 ng/dL (0.8-2.2)
[2024-06-13 08:56] LABS: Abs Immature Grans 0.02 10^3/uL (0.0-0.06); Absolute Basophil Count 0.04 10^3/uL (0.0-0.2); Absolute Eosinophil Count 0.14 10^3/uL (0.0-0.7); Absolute Lymphocyte Count 0.67 10^3/uL (1.2-3.4); Absolute Monocyte Count 0.74 10^3/uL (0.1-0.8); Absolute Neutrophil Count 5.54 10^3/uL (1.2-6.7); Basophils % 0.6 %; HCT 34.1 % (36.0-46.0); HGB 11.1 g/dL (11.2-15.7); Immature Grans % 0.3 %; Lymphocytes % 9.4 %; MCH 32.1 pg (27.0-33.0); MCHC 32.6 % (32.0-36.0); MCV 99 fL (80-95); Monocytes % 10.3 %; Neutrophils % 77.4 %; Platelet Count 358 10^3/uL (130-400); RBC 3.46 10^6/uL (3.93-5.22); RDW 15.9 % (11.7-14.6); RDW-SD 57.2 fL; WBC 7.15 10^3/uL (4.4-10.8)
[2024-06-13] MEDS: Normal Saline Flush 10 ML SYR IVP (09:11)
[2024-06-13 09:20] LABS: ALT 15 U/L (14-59); AST 14 U/L (15-37); Albumin 3.3 g/dL (3.4-5.0); Alkaline Phosphatase 74 U/L (46-116); Anion Gap 10.1 mmol/L (3-11); BUN 12 mg/dL (7-18); Bilirubin, Total 0.3 mg/dL (0.2-1.0); CO2 29.9 mmol/L (21.0-32.0); CREATININE 0.6 mg/dL (0.55-1.02); Calcium 9.5 mg/dL (8.5-10.1); Chloride 103 mmol/L (98-107); Estimated GFR 97.71 (mL/min/1.73m2); FREE T4 1.17 ng/dL (0.76-1.46); Glucose 113 mg/dL (74-106); Magnesium 1.3 mg/dL (1.8-2.4); Potassium 3.5 mmol/L (3.5-5.1); Sodium 143 mmol/L (136-145); TSH 6.48 uIU/mL (0.36-3.74); Total Protein 7.5 g/dL (6.4-8.2)
== END 2024-06-13 23:59 | disposition home or self-care (01) ==
LOC: INF 01:31
PROVIDERS: Nurse Practitioner Family; PCP Student in an Organized Health Care Education/Training Program; Visit Provider Internal Medicine Medical Oncology
DX: E03.2 Hypothyroidism due to medicaments and other exogenous substances (principal); C34.31 Malignant neoplasm of lower lobe, right bronchus or lung; Z79.899 Other long term (current) drug therapy
CPT/HCPCS: 36591; 80053; 83735; 84439; 84443; 85025

== ENCOUNTER 2024-07-04 02:21 | Outpatient (RCR) | payer MEDICARE, SELFPAY ==
[2024-07-04 08:00] LABS: Abs Immature Grans 0.04 10^3/uL (0.0-0.06); Absolute Basophil Count 0.06 10^3/uL (0.0-0.2); Absolute Eosinophil Count 0.16 10^3/uL (0.0-0.7); Absolute Lymphocyte Count 0.42 10^3/uL (1.2-3.4); Absolute Monocyte Count 1.23 10^3/uL (0.1-0.8); Absolute Neutrophil Count 8.14 10^3/uL (1.2-6.7); Basophils % 0.6 %; Eosinophils % 1.6 %; HCT 32.5 % (36.0-46.0); HGB 10.6 g/dL (11.2-15.7); Immature Grans % 0.4 %; Lymphocytes % 4.2 %; MCHC 32.6 % (32.0-36.0); MCV 101 fL (80-95); MPV 8.9 fL (8.0-11.0); Monocytes % 12.2 %; Platelet Count 324 10^3/uL (130-400); RBC 3.21 10^6/uL (3.93-5.22); RDW 16.8 % (11.7-14.6); RDW-SD 62.2 fL; WBC 10.05 10^3/uL (4.4-10.8)
[2024-07-04] MEDS: Normal Saline Flush 10 ML SYR IVP (08:00)
[2024-07-04 08:29] LABS: ALT 14 U/L (14-59); AST 16 U/L (15-37); Albumin 2.9 g/dL (3.4-5.0); Alkaline Phosphatase 84 U/L (46-116); Anion Gap 5.3 mmol/L (3-11); BUN 12 mg/dL (7-18); Bilirubin, Total 0.3 mg/dL (0.2-1.0); CO2 32.7 mmol/L (21.0-32.0); CREATININE 0.6 mg/dL (0.55-1.02); Calcium 9.2 mg/dL (8.5-10.1); Chloride 103 mmol/L (98-107); Estimated GFR 97.71 (mL/min/1.73m2); FREE T4 1.04 ng/dL (0.76-1.46); Glucose 116 mg/dL (74-106); Magnesium 1.1 mg/dL (1.8-2.4); Potassium 3.2 mmol/L (3.5-5.1); Sodium 141 mmol/L (136-145); TSH 9.99 uIU/mL (0.36-3.74); Total Protein 7.2 g/dL (6.4-8.2)
== END 2024-07-13 23:59 | disposition home or self-care (01) ==
LOC: INF 02:21
PROVIDERS: Nurse Practitioner Family; PCP Student in an Organized Health Care Education/Training Program; Visit Provider Internal Medicine Medical Oncology
DX: Z79.899 Other long term (current) drug therapy (principal); C34.31 Malignant neoplasm of lower lobe, right bronchus or lung; Z45.2 Encounter for adjustment and management of vascular access device
CPT/HCPCS: 36591; 80053; 83735; 84439; 84443; 85025

== ENCOUNTER 2024-07-25 03:27 | Outpatient (RCR) | payer MEDICARE, SELFPAY ==
[2024-07-25] MEDS: Normal Saline Flush 10 ML SYR IVP (08:20)
[2024-07-25 08:27] LABS: Abs Immature Grans 0.03 10^3/uL (0.0-0.06); Absolute Basophil Count 0.05 10^3/uL (0.0-0.2); Absolute Eosinophil Count 0.27 10^3/uL (0.0-0.7); Absolute Lymphocyte Count 0.46 10^3/uL (1.2-3.4); Basophils % 0.6 %; Eosinophils % 3.3 %; HCT 34.3 % (36.0-46.0); Immature Grans % 0.4 %; Lymphocytes % 5.7 %; MCHC 32.1 % (32.0-36.0); MCV 103 fL (80-95); MPV 9.4 fL (8.0-11.0); Monocytes % 9.9 %; Neutrophils % 80.1 %; Platelet Count 281 10^3/uL (130-400); RBC 3.33 10^6/uL (3.93-5.22); RDW 15.6 % (11.7-14.6); RDW-SD 59.3 fL; WBC 8.11 10^3/uL (4.4-10.8)
[2024-07-25 08:55] LABS: ALT 13 U/L (14-59); AST 18 U/L (15-37); Alkaline Phosphatase 81 U/L (46-116); Anion Gap 5.5 mmol/L (3-11); BUN 14 mg/dL (7-18); Bilirubin, Total 0.4 mg/dL (0.2-1.0); CO2 31.5 mmol/L (21.0-32.0); CREATININE 0.5 mg/dL (0.55-1.02); Calcium 9.3 mg/dL (8.5-10.1); Chloride 103 mmol/L (98-107); FREE T4 1.05 ng/dL (0.76-1.46); Glucose 104 mg/dL (74-106); Magnesium 1.5 mg/dL (1.8-2.4); Potassium 3.6 mmol/L (3.5-5.1); Sodium 140 mmol/L (136-145); TSH 10.19 uIU/mL (0.36-3.74); Total Protein 7.6 g/dL (6.4-8.2)
== END 2024-08-13 23:59 | disposition home or self-care (01) ==
LOC: INF 03:27
PROVIDERS: Nurse Practitioner Family; PCP Student in an Organized Health Care Education/Training Program; Visit Provider Internal Medicine Medical Oncology
DX: C34.31 Malignant neoplasm of lower lobe, right bronchus or lung (principal); E03.2 Hypothyroidism due to medicaments and other exogenous substances; Z79.899 Other long term (current) drug therapy
CPT/HCPCS: 36591; 80053; 83735; 84439; 84443; 85025

== ENCOUNTER 2024-09-05 02:51 | Outpatient (RCR) | payer MEDICARE, SELFPAY ==
[2024-08-15 08:06] LABS: Abs Immature Grans 0.03 10^3/uL (0.0-0.06); Absolute Basophil Count 0.05 10^3/uL (0.0-0.2); Absolute Eosinophil Count 0.07 10^3/uL (0.0-0.7); Absolute Lymphocyte Count 0.41 10^3/uL (1.2-3.4); Absolute Monocyte Count 0.78 10^3/uL (0.1-0.8); Absolute Neutrophil Count 4.95 10^3/uL (1.2-6.7); Basophils % 0.8 %; Eosinophils % 1.1 %; HCT 33.1 % (36.0-46.0); HGB 10.3 g/dL (11.2-15.7); Immature Grans % 0.5 %; Lymphocytes % 6.5 %; MCH 32.6 pg (27.0-33.0); MCHC 31.1 % (32.0-36.0); MCV 105 fL (80-95); Monocytes % 12.4 %; Neutrophils % 78.7 %; Platelet Count 289 10^3/uL (130-400); RBC 3.16 10^6/uL (3.93-5.22); RDW 15.6 % (11.7-14.6); RDW-SD 58.4 fL; WBC 6.29 10^3/uL (4.4-10.8)
[2024-08-15] MEDS: Normal Saline Flush 10 ML SYR IVP (08:09)
[2024-08-15 08:39] LABS: ALT 13 U/L (14-59); AST 21 U/L (15-37); Albumin 2.9 g/dL (3.4-5.0); Alkaline Phosphatase 79 U/L (46-116); Anion Gap 6.8 mmol/L (3-11); BUN 20 mg/dL (7-18); Bilirubin, Total 0.3 mg/dL (0.2-1.0); CO2 35.2 mmol/L (21.0-32.0); CREATININE 0.5 mg/dL (0.55-1.02); Calcium 8.4 mg/dL (8.5-10.1); Chloride 103 mmol/L (98-107); FREE T4 1.05 ng/dL (0.76-1.46); Glucose 75 mg/dL (74-106); Magnesium 1.3 mg/dL (1.8-2.4); Sodium 145 mmol/L (136-145); TSH 13.24 uIU/mL (0.36-3.74); Total Protein 7.5 g/dL (6.4-8.2)
[2024-09-05 08:24] LABS: Abs Immature Grans 0.05 10^3/uL (0.0-0.06); Absolute Basophil Count 0.04 10^3/uL (0.0-0.2); Absolute Eosinophil Count 0.03 10^3/uL (0.0-0.7); Absolute Monocyte Count 1.32 10^3/uL (0.1-0.8); Absolute Neutrophil Count 10.74 10^3/uL (1.2-6.7); Basophils % 0.3 %; Eosinophils % 0.2 %; HCT 32.6 % (36.0-46.0); HGB 10.1 g/dL (11.2-15.7); Immature Grans % 0.4 %; Lymphocytes % 3.2 %; MCH 33.3 pg (27.0-33.0); MCV 108 fL (80-95); MPV 8.9 fL (8.0-11.0); Monocytes % 10.5 %; Neutrophils % 85.4 %; Platelet Count 336 10^3/uL (130-400); RBC 3.03 10^6/uL (3.93-5.22); RDW 17.2 % (11.7-14.6); RDW-SD 67.1 fL; WBC 12.58 10^3/uL (4.4-10.8)
[2024-09-05] MEDS: Normal Saline Flush 10 ML SYR IVP (08:51)
[2024-09-05 08:59] LABS: ALT 19 U/L (14-59); AST 17 U/L (15-37); Albumin 2.6 g/dL (3.4-5.0); Alkaline Phosphatase 96 U/L (46-116); Anion Gap 8.3 mmol/L (3-11); BUN 18 mg/dL (7-18); Bilirubin, Total 0.3 mg/dL (0.2-1.0); CO2 31.7 mmol/L (21.0-32.0); CREATININE 0.6 mg/dL (0.55-1.02); Calcium 8.6 mg/dL (8.5-10.1); Chloride 105 mmol/L (98-107); Estimated GFR 97.71 (mL/min/1.73m2); FREE T4 0.89 ng/dL (0.76-1.46); Glucose 148 mg/dL (74-106); Magnesium 1.5 mg/dL (1.8-2.4); Potassium 3.3 mmol/L (3.5-5.1); Sodium 145 mmol/L (136-145); TSH 9.08 uIU/mL (0.36-3.74); Total Protein 7.5 g/dL (6.4-8.2)
== END 2024-09-12 23:59 | disposition home or self-care (01) ==
LOC: INF 02:51
PROVIDERS: Nurse Practitioner Family; PCP Student in an Organized Health Care Education/Training Program; Visit Provider Internal Medicine Medical Oncology
DX: C34.31 Malignant neoplasm of lower lobe, right bronchus or lung (principal); Z79.899 Other long term (current) drug therapy; Z45.2 Encounter for adjustment and management of vascular access device
CPT/HCPCS: 36591; 80053; 83735; 84439; 84443; 85025